=== PATIENT | female | born 1980 | race Caucasian/White ===

== ENCOUNTER 2019-09-26 15:38 | Emergency (ER) | payer BC, SELFPAY ==
[2019-09-26 15:46] VITALS: BP 146/94; PULSE 112; RESP 16; TEMP 37.3; O2SAT 100
--- NOTE | 2019-09-26 16:18 | ED.WOUNDLAC ---
HPI - Wound/Laceration General Chief Complaint: Wound/Laceration Stated Complaint: finger lac Time Seen by Provider: 09/26/19 15:57 Source: patient History of Present Illness HPI narrative: Laceration to the tip of the left third finger while trying to cut a LEMON. Unknown duration of her last tetanus shot, no other injuries Related Data Home Medications Medication Instructions Recorded Confirmed bupropion HCl 300 mg PO DAILY 09/26/19 Allergies Allergy/AdvReac Type Severity Reaction Status Date / Time No Known Allergies Allergy Verified 09/26/19 15:46 Review of Systems Review of Systems: Narrative: CONSTITUTIONAL: Denies fever, chills, or sweats. EYES: Denies visual changes, redness, or discharge. ENT: Denies rhinorrhea, congestion, sore throat, or otalgia. CARDIOVASCULAR: Denies chest pain, palpitations, or edema. RESPIRATORY: Denies cough or dyspnea. GASTROINTESTINAL: Denies abdominal pain, nausea, vomiting, or diarrhea. GENITOURINARY: Denies dysuria or hematuria. SKIN: Denies rash or itching. MUSCULOSKELETAL: Denies back pain, joint pain, or myalgia. NEUROLOGIC: Denies headache, numbness, or weakness. PSYCHIATRIC: Denies anxiety or depression. PMFSH Social History Social History Gender identity (if verbalized by the patient): Female Exam Narrative: Exam Narrative: General appearance: Well-developed, well-nourished Skin: Normal color, left third finger showed half centimeter laceration at the tip, dorsally, superficial Chest and respiratory: Airway patent, no respiratory distress, no accessory muscle use Heart: Regular rate/rhythm Vascular: Normal peripheral pulses, normal capillary refill. Musculoskeletal: Normal range of motion, nontender back Neurologic: Alert and oriented ?3, [employer] is normal as tested, no gross motor deficit Course Course Emergency Course: Stable Vital Signs Vital signs: Vital Signs Temperature 37.3 C 09/26/19 15:46 Pulse Rate 112 H 09/26/19 15:46 Respiratory Rate 16 09/26/19 15:46 Blood Pressure 146/94 H 09/26/19 15:46 Pulse Oximetry 100 09/26/19 15:46 Temperature 37.3 C 09/26/19 15:46 Pulse Rate 112 H 09/26/19 15:46 Respiratory Rate 16 09/26/19 15:46 Blood Pressure 146/94 H 09/26/19 15:46 Pulse Oximetry 100 09/26/19 15:46 MDM - Wound/Laceration MDM Narrative Medical decision making narrative: Betadine, Dermabond Critical Care Time Critical Care Time Critical Care Time: No Discharge Plan Discharge Clinical Impression: Finger laceration Qualifiers: Encounter type: initial encounter Finger: ring finger Damage to nail status: without damage Foreign body presence: with foreign body Laterality: left Qualified Code(s): S61.225A - Laceration with foreign body of left ring finger without damage to nail, initial encounter Patient Disposition: Home, Self-Care Condition: Improved Instructions: Finger Laceration (ED), Skin Adhesive Care (ED) Additional Instructions: Return if symptoms are worsening , call your family physician for appointment, take Tylenol as as needed for aches and pain, continue home medications. Prescriptions: No Action bupropion HCl 300 mg tablet extended release 24 hr 300 mg PO DAILY RF: 0 Follow-up/Referrals: Vandana,KRISTEN Mcdonald [Primary Care Provider] -
[2019-09-26] MEDS: TETANUS,DIPHTHERIA,AC PERTUSSIS ADULT (0.5 ML) BOOSTRIX IM (16:22)
--- NOTE | 2019-09-26 16:26 | PC.NURSE ---
Per verbal order of Dr. Vicente, Patient is soaking her left 3rd finger (middle finger) in betadine at this time. Dermabond in room for the EDP.
[2019-09-26 17:02] VITALS: BP 132/79; PULSE 91; RESP 18; TEMP 36.8; O2SAT 99
== END 2019-09-26 17:02 | disposition home or self-care (01) ==
PROVIDERS: Emergency Provider Emergency Medicine; PCP Physician Assistant
DX: S61.213A Laceration without foreign body of left middle finger without damage to nail, initial encounter (principal); Z23 Encounter for immunization; W26.0XXA Contact with knife, initial encounter; Y93.G1 Activity, food preparation and clean up
CPT/HCPCS: 12001; 90471; 90715; 99282

== ENCOUNTER → 2019-11-17 12:59 | Outpatient (CLI) | payer BC, SELFPAY ==
--- NOTE | ~2019-11-17 | MM_ITS ---
EXAMINATION: MM scrn michelle implant BI w marbella HISTORY: Baseline screening mammogram TECHNIQUE: Craniocaudal and mediolateral oblique 3-D tomosynthesis images with implant displacement a nd synthetic 2-D images were generated. Craniocaudal and mediolateral oblique views of the breasts wi thout implant displacement were obtained using full field digital mammography. CAD analysis was submi tted and interpreted. COMPARISON: None, baseline BREAST PARENCHYMAL COMPOSITION: The breasts are heterogeneously dense, which may obscure small masses . FINDINGS: Bilateral saline breast implants are noted. RIGHT BREAST: There is a questionable low density mass in the posterior third of the outer breast on the craniocaudal view without implant displacement. LEFT BREAST: There is no evidence of suspicious mass, calcification, or architectural distortion to s uggest malignancy. IMPRESSION: 1. Possible right breast mass. 2. Additional mammographic views and possible breast ultrasound are recommended to evaluate for randallig marina and establish a baseline given that this is the first mammographic examination. BI-RADS Category 0: Incomplete: Needs additional imaging evaluation. Reviewed, dictated and finalized at location A. IMPRESSION: 1. Possible right breast mass. 2. Additional mammographic views and possible breast ultrasound are recommended to evaluate for malignancy and establish a baseline given that this is the fir st mammographic examination. BI-RADS Category 0: Incomplete: Needs additional imaging evaluation.
== END ==
PROVIDERS: PCP Physician Assistant; Visit Provider Physician Assistant
DX: Z12.31 Encounter for screening mammogram for malignant neoplasm of breast (principal); R92.8 Other abnormal and inconclusive findings on diagnostic imaging of breast
CPT/HCPCS: 77063; 77067

== ENCOUNTER → 2019-11-25 09:46 | Outpatient (CLI) | payer BC, SELFPAY ==
--- NOTE | ~2019-11-25 | MMUS_ITS ---
EXAMINATION: MM diagnostic mammo implant RT, US breast RT limited HISTORY: Follow-up right breast asymmetry TECHNIQUE: Additional 3-D tomosynthesis images of the right breast were performed and synthetic 2-D i mages were generated. CAD analysis was submitted and interpreted. High resolution right breast ultras ound was performed. COMPARISON: 11/17/2019 BREAST PARENCHYMAL COMPOSITION: Breast composed of scattered areas of fibroglandular density. FINDINGS: MAMMOGRAPHIC FINDINGS: There are no suspicious masses, calcifications or architectural distortion to suggest malignancy. The re are bilateral subglandular saline implants. ULTRASOUND: Limited right breast ultrasound: Normal heterogeneous echotexture without focal solid or cystic mass. IMPRESSION: 1. No mammographic or sonographic evidence for malignancy in the right breast. 2. Routine yearly screening mammogram and regular clinical breast examination are recommended. BI-RADS Category 1: Negative Reviewed, dictated and finalized at location A. IMPRESSION: 1. No mammographic or sonographic evidence for malignancy in the right breast. 2. Routine yearly screening mammogram and regular clinical breast examination a re recommended. BI-RADS Category 1: Negative
== END ==
PROVIDERS: Visit Provider Physician Assistant
DX: R92.8 Other abnormal and inconclusive findings on diagnostic imaging of breast (principal)
CPT/HCPCS: 76642; 77065

== ENCOUNTER → 2020-05-05 09:23 | Outpatient (CLI) | payer BC, SELFPAY ==
[2020-05-05 20:53] LABS: SARS-CoV-2 RNA PCR Positive
== END ==
PROVIDERS: Visit Provider Physician Assistant
DX: U07.1 COVID-19 (principal)
CPT/HCPCS: C9803; U0003; U0005

== ENCOUNTER → 2020-12-22 10:25 | Outpatient (CLI) | payer BC, SELFPAY ==
--- NOTE | ~2020-12-22 | MM_ITS ---
EXAMINATION: MM scrn michelle implant BI w marbella HISTORY: Screening mammogram TECHNIQUE: Craniocaudal and mediolateral oblique 3-D tomosynthesis images with implant displacement a nd synthetic 2-D images were generated. Craniocaudal and mediolateral oblique views of the breasts wi thout implant displacement were obtained using full field digital mammography. CAD analysis was submi tted and interpreted. COMPARISON: 11/17/2019 BREAST PARENCHYMAL COMPOSITION: The breasts are heterogeneously dense, which may obscure small masses . FINDINGS: There are subglandular saline implants. There is no evidence of suspicious mass, calcificat ion, or architectural distortion to suggest malignancy in either breast. There has been no suspicious interval change. IMPRESSION: 1. No mammographic evidence of malignancy. 2. Recommend routine screening mammography in one year. BI-RADS Category 1: Negative Reviewed, dictated and finalized at location A.
== END ==
PROVIDERS: PCP Physician Assistant; Visit Provider Physician Assistant
DX: Z12.31 Encounter for screening mammogram for malignant neoplasm of breast (principal)
CPT/HCPCS: 77063; 77067

== ENCOUNTER → 2022-06-23 08:49 | Outpatient (CLI) | payer OTHER, SELFPAY ==
--- NOTE | ~2022-06-23 | MM_ITS ---
EXAMINATION: MM scrn michelle implant BI w marbella HISTORY: Screening mammogram TECHNIQUE: Craniocaudal and mediolateral oblique 3-D tomosynthesis images with implant displacement a nd synthetic 2-D images were generated. Craniocaudal and mediolateral oblique views of the breasts wi thout implant displacement were obtained using full field digital mammography. CAD analysis was submi tted and interpreted. COMPARISON: 12/22/2020 bilateral implant screening mammogram 11/25/2019 diagnostic right mammogram and limited right breast ultrasound 11/17/2019 bilateral screening mammogram BREAST PARENCHYMAL COMPOSITION: The breasts are extremely dense, which lowers the sensitivity of mamm ography. FINDINGS: Status post bilateral augmentation mammoplasty. There is no evidence of suspicious mass, ca lcification, or architectural distortion to suggest malignancy in either breast. There has been no tran spicious interval change. IMPRESSION: 1. No mammographic evidence of malignancy. 2. Recommend routine screening mammography in one year. BI-RADS Category 1: Negative Reviewed, dictated and finalized at location A.
== END ==
PROVIDERS: PCP Physician Assistant; Visit Provider Physician Assistant
DX: Z12.31 Encounter for screening mammogram for malignant neoplasm of breast (principal)
CPT/HCPCS: 77063; 77067

== ENCOUNTER 2023-09-24 10:27 | Outpatient (CLI) | payer OTHER, SELFPAY ==
--- NOTE | ~2023-09-24 | MM_ITS ---
EXAMINATION: MM scrn michelle implant BI w marbella HISTORY: Screening mammogram TECHNIQUE: Craniocaudal and mediolateral oblique 3-D tomosynthesis images with implant displacement a nd synthetic 2-D images were generated. Craniocaudal and mediolateral oblique views of the breasts wi thout implant displacement were obtained using full field digital mammography. CAD analysis was submi tted and interpreted. COMPARISON: 06/23/2022, 12/22/2020, 11/25/2019 BREAST PARENCHYMAL COMPOSITION: The breasts are heterogeneously dense, which may obscure small masses . FINDINGS: There is no evidence of suspicious mass, calcification, or architectural distortion to sugg est malignancy in either breast. There has been no suspicious interval change. IMPRESSION: No mammographic evidence of malignancy. Recommend routine screening mammography in one year. BI-RADS Category 1: Negative Reviewed, dictated and finalized at [facility].
== END 2023-09-24 10:28 ==
LOC: MICIMG 10:28
PROVIDERS: PCP Physician Assistant; Visit Provider Physician Assistant
DX: Z12.31 Encounter for screening mammogram for malignant neoplasm of breast (principal)
CPT/HCPCS: 77063; 77067

== ENCOUNTER 2024-12-02 14:19 | Outpatient (CLI) | payer OTHER, SELFPAY ==
--- NOTE | ~2024-12-02 | MM_ITS ---
EXAMINATION: MM scrn michelle implant BI w marbella INDICATION: Asymptomatic, referred for screening mammogram COMPARISON: 09/24/2023 through 12/22/2020 TECHNIQUE: Digital Breast Tomosynthesis CC, MLO, and implant displaced CC and MLO views of Both breasts were obtained with computer-aided detection to assist in interpretation of the study. FINDINGS: The breasts are heterogeneously dense, which may obscure small masses. Bilateral breast Retroglandular Saline implants in place appears intact. No focal dominant mass, architectural distortion, or suspicious microcalcifications are identified. There are no features to suggest malignancy. IMPRESSION: 1. No evidence of malignancy in the breasts. 2. Both breasts Retroglandular Saline implants appears intact. Recommend continued screening mammography BI-RADS 1, NEGATIVE Reviewed, dictated and finalized at location B.
== END 2024-12-02 14:20 | disposition home or self-care (01) ==
PROVIDERS: PCP Obstetrics & Gynecology; Visit Provider Physician Assistant
DX: Z12.31 Encounter for screening mammogram for malignant neoplasm of breast (principal)
CPT/HCPCS: 77063; 77067